=== PATIENT | male | born 1970 | race Caucasian/White ===

== ENCOUNTER 2017-06-15 23:17 | Emergency (ER) | payer OTHER ==
[~2017-06-15] VITALS: Ht 180.3 cm; Wt 95.3 kg
[~2017-06-15 23:17] MED LIST: ACTOS 30 MG TAB30 MG PO; ADULT LOW DOSE81 MG PO; AMBIEN 10 MG TA10 MG PO; ATIVAN2 MG PO; BENZTROPINE MES1 MG PO; CHILDREN'S ACET80 MG PO; DEPAKOTE500 MG PO; DESYREL50 MG PO; EMTRIVA200 MG PO; FISH OIL 1,0001 EAC5 PO; HALOPERIDOL2 MG/1 ML IM; LAC-HYDRIN225 GM TP; LANTUS SC; LEVEMIR SC; LISINOPRIL20 MG PO; LITHIUM CARBON150 MG PO; MAALOX525 MG/15 PO; NORVASC10 MG PO; NOVOLIN R100 UNIT/3 IJ; NOVOLOG100 UNIT/1 SC; RISPERDAL0.25 MG PO; RISPERDAL1 MG/1 ML IM; SEROQUEL 100 M100 MG PO; SUSTIVA600 MG PO; THERA-M CAPLET1 EACH PO; ULTRACET TABLE1 EACH PO; VIREAD300 MG PO; WELLBUTRIN XL150 M2 PO; ZOCOR40 MG PO; ZOLOFT 50 MG TA50 M1 PO; ZYPREXA 10 MG T10 MG PO; ZYPREXA20 MG PO; [UNRECOGNIZED DRUG - OTHER] MM
[2017-06-16] MEDS ORDERED: ATRIPLA TABLET1 EACH PO (00:16)
[2017-06-16] MEDS ORDERED: CLARITIN10 MG PO (00:17)
[2017-06-16] MEDS ORDERED: NAPROSYN500 MG PO (00:21)
[2017-06-16 01:56] VITALS: BP 136/81
== END 2017-06-16 02:20 ==
LOC: ER 23:17
DX: F44.4 Conversion disorder with motor symptom or deficit (principal); E11.9 Type 2 diabetes mellitus without complications; F32.9 Major depressive disorder, single episode, unspecified; F20.9 Schizophrenia, unspecified; G47.30 Sleep apnea, unspecified; Z21 Asymptomatic human immunodeficiency virus [HIV] infection status; Z79.4 Long term (current) use of insulin